=== PATIENT | female | born 2000 | race Caucasian/White ===

== ENCOUNTER 2023-04-07 01:48 | Emergency (ER) | payer SELFPAY ==
[2023-04-08 03:23] LABS: Chlam.trachomatis by PCR,Urine Not Detected (NotDetected); GC N.gonorrhoeae PCR,UrineVOID Not Detected (NotDetected)
== END 2023-04-07 02:43 | disposition home or self-care (01) ==
LOC: CSHERS 01:48
DX: Z00.00 Encounter for general adult medical examination without abnormal findings (principal)
CPT/HCPCS: 87491; 87591; 99283